=== PATIENT | female | born 1975 | race Caucasian/White ===

== ENCOUNTER → 2016-11-29 | Outpatient (CLI) | payer BC | LOC: BHSO 08:56 | DX: F31.81 Bipolar II disorder (principal) ==

== ENCOUNTER → 2016-12-17 | Outpatient (CLI) | payer BC | LOC: BHSO 11:20 | DX: F31.81 Bipolar II disorder (principal) ==

== ENCOUNTER → 2017-07-16 | Outpatient (CLI) | payer OTHER | LOC: BHSO 08:30 | DX: F31.81 Bipolar II disorder (principal) ==

== ENCOUNTER → 2017-07-29 | Outpatient (CLI) | payer BC | LOC: BHSO 15:28 | DX: F31.81 Bipolar II disorder (principal) ==

== ENCOUNTER → 2017-08-11 | Outpatient (CLI) | payer BC | LOC: BHSO 08:58 | DX: F31.81 Bipolar II disorder (principal) ==

== ENCOUNTER → 2017-08-22 | Outpatient (CLI) | payer BC | LOC: BHSO 14:44 | DX: F31.81 Bipolar II disorder (principal) ==

== ENCOUNTER → 2017-11-24 | Outpatient (CLI) | payer BC | LOC: BHSO 15:42 | DX: F31.81 Bipolar II disorder (principal) | CPT/HCPCS: G0463 ==

== ENCOUNTER → 2018-03-27 | Outpatient (CLI) | payer BC | LOC: BHSO 11:18 | DX: F31.81 Bipolar II disorder (principal) | CPT/HCPCS: G0463 ==

== ENCOUNTER → 2018-09-17 | Outpatient (CLI) | payer BC | LOC: BHSO 11:14 | DX: F33.42 Major depressive disorder, recurrent, in full remission (principal) | CPT/HCPCS: G0463 ==

== ENCOUNTER → 2019-03-16 | Outpatient (CLI) | payer BC | LOC: BHSO 11:15 | DX: F31.81 Bipolar II disorder (principal) | CPT/HCPCS: G0463 ==

== ENCOUNTER → 2020-08-22 | Outpatient (CLI) | payer BC | LOC: BHSO 11:43 | DX: F33.42 Major depressive disorder, recurrent, in full remission (principal) | CPT/HCPCS: G0463 ==

== ENCOUNTER → 2021-03-23 | Outpatient (CLI) | payer BC | LOC: MC.RAD 08:49 | DX: N63.10 Unspecified lump in the right breast, unspecified quadrant (principal); R92.8 Other abnormal and inconclusive findings on diagnostic imaging of breast ==

== ENCOUNTER → 2021-03-27 | Outpatient (CLI) | payer BC | LOC: MC.RAD 07:49 | DX: N63.10 Unspecified lump in the right breast, unspecified quadrant (principal) ==